=== PATIENT | female | born 1980 | race Native Hawaiian/Other Pacific Islander ===

== ENCOUNTER 2021-02-22 07:37 | Outpatient (CLI) | payer BC | END 2021-02-22 19:11 | disposition home or self-care (01) | LOC: US 07:37 | PROVIDERS: ATTEND Internal Medicine Hematology & Oncology | DX: E11.9 Type 2 diabetes mellitus without complications (principal); I10 Essential (primary) hypertension; D47.3 Essential (hemorrhagic) thrombocythemia; D64.9 Anemia, unspecified; R10.9 Unspecified abdominal pain ==

== ENCOUNTER 2021-12-23 15:56 | Emergency (ER) | payer BC ==
[~2021-12-23] VITALS: Ht 167.6 cm; Wt 87.5 kg
[2021-12-23 16:05] VITALS: BP 138/84; TEMP 97.4
== END 2021-12-23 17:37 | disposition home or self-care (01) ==
LOC: ED 15:56
DX: N39.0 Urinary tract infection, site not specified (principal); R00.0 Tachycardia, unspecified
CPT/HCPCS: 81000; 81025; 87088; 93005; 96372; 99283; J0696

== ENCOUNTER 2022-01-03 08:52 | Outpatient (CLI) | payer BC | END 2022-01-03 18:59 | disposition home or self-care (01) | LOC: MAMMO 08:52 | PROVIDERS: ATTEND Specialist | DX: Z12.31 Encounter for screening mammogram for malignant neoplasm of breast (principal) ==

== ENCOUNTER 2022-01-17 07:59 | Outpatient (CLI) | payer BC | END 2022-01-17 18:51 | disposition home or self-care (01) | LOC: US 07:59 | PROVIDERS: ATTEND Nurse Practitioner Family | DX: J32.9 Chronic sinusitis, unspecified (principal); R59.0 Localized enlarged lymph nodes; Z12.31 Encounter for screening mammogram for malignant neoplasm of breast; R92.8 Other abnormal and inconclusive findings on diagnostic imaging of breast | CPT/HCPCS: 36415; 82565; 84520; Q9963 ==

== ENCOUNTER 2022-01-19 08:39 | Outpatient (CLI) | payer BC | END 2022-01-19 18:56 | disposition home or self-care (01) | LOC: US 08:39 | PROVIDERS: ATTEND Specialist | DX: N63.20 Unspecified lump in the left breast, unspecified quadrant (principal) ==

== ENCOUNTER 2022-01-24 08:00 | Outpatient (CLI) | payer BC | END 2022-01-24 19:05 | disposition home or self-care (01) | LOC: CT 08:00 | PROVIDERS: ATTEND Nurse Practitioner Family | DX: R59.0 Localized enlarged lymph nodes (principal) | CPT/HCPCS: Q9963 ==

== ENCOUNTER 2022-04-01 11:05 | Outpatient (CLI) | payer BC | END 2022-04-01 20:28 | disposition home or self-care (01) | LOC: US 11:05 | PROVIDERS: ATTEND Specialist | DX: N64.89 Other specified disorders of breast (principal) ==

== ENCOUNTER 2023-11-20 15:31 | Outpatient (CLI) | payer BC ==
[~2023-11-20 15:31] MED LIST: CYCL10TA35 PO; TRAMADOL HYDROC50 MG PO
== END 2023-11-20 19:48 | disposition home or self-care (01) ==
LOC: CT 15:31
PROVIDERS: ATTEND Orthopaedic Surgery Sports Medicine
DX: M25.512 Pain in left shoulder (principal); S42.292A Other displaced fracture of upper end of left humerus, initial encounter for closed fracture; Y92.89 Other specified places as the place of occurrence of the external cause